=== PATIENT | female | born 2005 | race African-American/Black ===

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

== ENCOUNTER 2025-09-17 05:27 | Emergency (ER) | payer OTHER ==
[2025-09-17] MEDS ORDERED: Lidocaine Hydrochloride 5 ML AMP SC ONE (06:25)
[2025-09-17] MEDS ORDERED: Lidocaine Hydrochloride 5 ML AMP ONE (06:46)
[2025-09-17] MEDS ORDERED: CEPHALEXIN500 M1 PO (06:54)
[2025-09-17] MEDS ORDERED: CEPHALEXIN 500 MG CAP PO ONE (06:55)
[2025-09-17] MEDS ORDERED: Tdap Vaccine 0.5 ML SYR (Adult Vaccine) IM ONE (06:55)
== END 2025-09-17 15:39 | disposition home or self-care (01) ==
LOC: ED 05:27
DX: S61.210A Laceration without foreign body of right index finger without damage to nail, initial encounter (principal); Z88.2 Allergy status to sulfonamides; Z87.440 Personal history of urinary (tract) infections; W45.8XXA Other foreign body or object entering through skin, initial encounter; Y93.89 Activity, other specified; Y92.89 Other specified places as the place of occurrence of the external cause; Y99.8 Other external cause status